=== PATIENT | female | born 2000 | race Caucasian/White ===

== ENCOUNTER 2022-08-26 20:58 | Outpatient (CLI) | payer OTHER ==
[~2022-08-26] VITALS: Wt 79.5 kg
--- NOTE | 2022-08-26 20:45 | NUR ---
G2L1. 36.2. Ambulatory to LDR 5. Clean gown on. EFM and TOCO explained and applied. Pt states she has been having contractions for the past 2 hours and they have been 3 mins apart. Pt states she was down on [place] over the weekend and was seen in the hospital for contractions. Reports getting one dose of betamethasone and reports SVE . Pt denies leaking of fluids or vaginal bleeding. Reports good movement. Plan of care explained to pt who verbalizes her understanding. 2114: at nurses's station and reviews FHR strip and maternal VS. Orders received. See physican notification. Pt updated on new plan of care. Pt does reports having an elevated pulse all the of the time in the 90s-100s. 2129: IV started and labs obtained. LR bolus infusing without difficulty.
[2022-08-26 21:00] VITALS: BP 113/64; PULSE 113; TEMP 97.6
[2022-08-26 21:30] VITALS: BP 107/60; PULSE 93
[2022-08-26 21:48] LABS: COLLECTION METHOD CLEAN CATCH
[2022-08-26 21:50] LABS: BASO % 0.1 % (0.0-2.0); EOS % 0.3 % (0.0-4.0); GRAN # 10.1 K/mm3 (1.4-6.5); GRAN % 75.3 % (42.2-75.2); HEMATOCRIT 37.1 % (37.0-47.0); LYMPH # 2.4 K/mm3 (1.2-3.4); LYMPH % 17.6 % (20.0-51.0); MEAN CELL VOLUME 90 fl (80.0-100.0); MEAN CORPUSCULAR HEMOGLOBIN 32 pg (27-31); MEAN CORPUSCULAR HGB CONC 35 g/dl (33.0-37.0); MEAN PLATELET VOLUME 9.6 fl (7.4-10.4); MONO # 0.8 K/mm3 (0.1-0.6); MONO % 5.8 % (1.7-9.3); PLATELET COUNT 169 K/mm3 (130-400); RED BLOOD COUNT 4.11 M/mm3 (4.10-5.30); REDCELL DISTRIBUTION WIDTH-CV 12.7 % (11.5-14.5)
[2022-08-26 21:52] LABS: SQUAMOUS EPITHELIAL 0-2 /hpf (0-10); URINE BACTERIA Rare /hpf (NONE SEEN); URINE RBC 0-2 /hpf (0-2); URINE WBC 0-2 /hpf (0-2)
[2022-08-26 21:54] LABS: URINE APPEARANCE Clear (CLEAR/HAZY); URINE BLOOD Negative (NEGATIVE); URINE COLOR Yellow (YELLOW); URINE GLUCOSE Negative (NEGATIVE); URINE KETONE Negative (NEGATIVE); URINE NITRATE Negative (NEGATIVE); URINE PROTEIN(semi-quant) Negative (NEGATIVE); URINE UROBILINOGEN 0.2 E.U/dL (0.2-1.0)
[2022-08-26 22:00] VITALS: BP 108/63; PULSE 102
[2022-08-26] MEDS ORDERED: PRILOTC PO (22:02)
[2022-08-26] MEDS ORDERED: PRENATAL MVI PO (22:02)
[2022-08-26 22:07] LABS: ALBUMIN 3.1 gm/dL (3.5-5.0); BILIRUBIN,TOTAL 0.3 mg/dL (0.2-1.2); CALCIUM 8.9 mg/dL (8.4-10.2); CREATININE, serum 0.66 mg/dL (0.57-1.11); POTASSIUM 3.5 mmol/L (3.5-4.5); TOTAL PROTEIN 6.3 gm/dL (6.2-8.1)
[2022-08-26 22:26] LABS: THYROID STIMULATING HORMONE 1.333 uIU/mL (0.350-4.940)
[2022-08-26 22:30] VITALS: BP 113/60; PULSE 107
[2022-08-26 22:43] VITALS: BP 110/59; PULSE 102
--- NOTE | 2022-08-26 22:45 | NUR ---
SVE unchanged. at [facility]'s station and reviews FHR strip, maternal VS and labs. Orders to discharge home recieved. IV DC'd. 7145: Discharge instructions given to pt who verbalizes her understanding. Pt ambualtory off unit and home.
== END 2022-08-26 22:55 | disposition home or self-care (01) ==
LOC: LDRO 20:58
PROVIDERS: Obstetrics & Gynecology
DX: O62.9 Abnormality of forces of labor, unspecified (principal); Z3A.36 36 weeks gestation of pregnancy
CPT/HCPCS: J7120

== ENCOUNTER 2022-09-15 15:02 | Outpatient (CLI) | payer OTHER ==
[~2022-09-15] VITALS: Ht 167.6 cm; Wt 80.5 kg
[~2022-09-15 15:02] MED LIST: PRENATAL MVI PO; PRILOTC PO
--- NOTE | 2022-09-15 16:02 | NUR ---
1515- PT ARRIVES ON UNIT WITH FOB COMPLAINING OF LEAKING OF FLUID SINCE LAST NIGHT AROUND 1800. PT REPORTS OCCASIONAL CONTRACTIONS THAT SHE RATES A 3 OUT OF 10 BUT STATES SHE HAS BEEN JOON ON AND OFF FOR WEEKS NOW. PT INFORMS RN THAT SHE RECIEVED 1 DOSE OF BETA IN [place] AROUND 36-37 WEEKS DUE TO CONTRACTIONS AND IS GBS NEGATIVE. PT DENIES VB, DFM, OR ANY OTHER COMPLAINTS AT THIS TIME. PT STATES SHE OCCASIONALLY WILL TRICKLE YELLOW/CLEARISH FLUID BUT DENIES ANY BIG GUSHES. PT APPEARS CALM AND RELAXED.
--- NOTE | 2022-09-15 16:05 | NUR ---
1540- RN CALLS NEWCOMER MD AND INFORMS MD OF PT ARRIVAL, COMPLAINTS, ROM + COLLECTED, SVE 1.5/50/-3, FHTS REACTIVE, CTX PATTERN, PT DEMEANOR. ORDERS TO SEND ROM + AND RECHECK PT IN ONE HOUR. RN SONIDOVO.
[2022-09-15 16:09] VITALS: BP 111/67; PULSE 96; TEMP 98.2
--- NOTE | 2022-09-15 16:59 | NUR ---
1700 PT GIVEN BOTH WRITTEN AND VERBAL DISCHARGE INSTRUCTIONS. PT INSTRUCTED TO CALL/COME BACK IF PT NOTICES ANY LOF, VB, STRONG/REGULAR CTX, DFM, OR ANY OTHER CHANGES/CONCERNS. PT VERBALIZES UNDERSTANDING AND HAS NO QUESTIONS AT THIS TIME.
[2022-09-15 17:00] VITALS: BP 111/67; PULSE 96; TEMP 98.1
--- NOTE | 2022-09-15 17:02 | NUR ---
SUSU UPDATED ON SVE RECHECK UNCHANGED AND ROM + NEGATIVE RESULTS, FHTS, CTX PATTERN. ORDERS FROM MD IS TO D/C PT HOME AT THIS TIME.
[2022-09-20] MEDS ORDERED: MOTRIN 800800 MG/TAB PO (10:37)
== END 2022-09-15 17:06 | disposition home or self-care (01) ==
LOC: LDRO 15:02
DX: O42.92 Full-term premature rupture of membranes, unspecified as to length of time between rupture and onset of labor (principal); Z3A.39 39 weeks gestation of pregnancy

== ENCOUNTER 2022-09-19 14:45 | Outpatient (CLI) | payer OTHER ==
[~2022-09-19] VITALS: Ht 167.6 cm; Wt 81.8 kg
--- NOTE | 2022-09-19 15:17 | NUR ---
Pt and spouse arrive ambulatory to unit at 1450. Pt changes into gown, EFM explained and placed. VS taken. Pt reports contractions since about 1300 every 3-4 minutes and reports some pink tinged discharge about 1300 as well. Pt also reports nausea this morning, but that has resolved. SVE 1-2/70/-2. Pt questions leaking of fluid, however bag felt around baby during cervical check and no pooling of fluid noticed on glove. Assessment done, pt informed of labor check process and verbalizes understanding. Denies needs/questions at this time.
[2022-09-19 15:30] VITALS: BP 111/62; PULSE 111; TEMP 97.7
[2022-09-19 16:00] VITALS: BP 109/64; PULSE 100
--- NOTE | 2022-09-19 16:26 | NUR ---
Repeat SVE unchanged. Pt reports contractions are getting stronger. Contractions are more frequent than on arrival. Dr. Carrero notified, see physician notification. Plan to watch pt for another hour. Pt informed and verbalizes understanding.
[2022-09-19 16:30] VITALS: BP 116/71; PULSE 92
[2022-09-19 17:00] VITALS: BP 115/72; PULSE 88
--- NOTE | 2022-09-19 17:20 | NUR ---
Repeat SVE 1-2/70-80/-2. Dr. Carrero on unit and informed, FHR strip reviewed by provider. Per Dr. Carrero, pt may go home, pt may stay and walk unit, or pt may stay and have therapeutic rest. Options presented to pt and spouse, they wish to have time to discuss.
[2022-09-19 17:30] VITALS: PULSE 95
[2022-09-19 17:52] VITALS: BP 116/74; PULSE 85
--- NOTE | 2022-09-19 18:06 | NUR ---
Pt and spouse would like to discharge at this time.
--- NOTE | 2022-09-19 18:39 | NUR ---
Discharge information given on early labor. Pt instructed to return to hospital with leaking of fluid, vaginal bleeding, decrease in baby's movements, or strong contractions she is unable to walk/talk through every 3-5 minutes. Pt verbalizes understanding, states she is going to eat dinner and walk. Pt and spouse left unit ambulatory.
[2022-09-20] MEDS ORDERED: MOTRIN 800800 MG/TAB PO (10:37)
== END 2022-09-19 18:20 | disposition home or self-care (01) ==
LOC: LDRO 14:45
DX: O62.9 Abnormality of forces of labor, unspecified (principal); Z3A.39 39 weeks gestation of pregnancy